=== PATIENT | female | born 1970 | race Caucasian/White ===

== ENCOUNTER 2016-12-02 10:52 | Emergency (ER) | payer OTHER ==
[~2016-12-02] VITALS: Ht 167.6 cm; Wt 89.8 kg
[~2016-12-02 10:52] MED LIST: ALPRAZOLAM0.5 MG PO; EFFEXOR75 MG PO; FIORICET 325 MG1 TAB PO; FOLIC ACID 1 MG PO; GABAPENTIN TAB600 MG PO; LAMICTAL200 MG PO
[2016-12-02 12:19] LABS: ABSOLUTE BASOPHIL COUNT 0.1 /CUMM (0.0-0.2); ABSOLUTE EOSINOPHIL COUNT 0.1 /CUMM (0.0-0.7); ABSOLUTE GRANULOCYTE CT 5.9 /CUMM (1.4-6.5); ABSOLUTE LYMPH COUNT 2.3 /CUMM (1.2-3.4); ABSOLUTE MONOCYTE COUNT 0.5 /CUMM (0.10-0.60); BASOPHIL % 1.4 % (0.0-2.0); EOSINOPHIL % 1.3 % (0-5); GRANULOCYTE % 66.2 % (42.2-75.2); HEMATOCRIT 42.1 % (37-47); MEAN CORPUSCULAR HGB CONC 34.3 G/DL (33.0-37.0); MEAN CORPUSCULAR VOLUME 90.3 FL (81.0-99.0); PLATELET COUNT 256 /CUMM (130-400); RBC DISTRIBUTION WIDTH 13.5 % (11.5-14.5); RED BLOOD CELL CT 4.66 /CUMM (4.20-5.40); WHITE BLOOD CELL COUNT 8.9 /CUMM (4.8-10.8)
--- NOTE | 2016-12-02 12:36 | ED AMS/SEIZURE/WEAK/DIZZY ---
History of Present Illness General Chief Complaint: Dizziness Stated Complaint: DIZZYNESS SENT BY DR LI FOR EVAL AND CT Source: patient, family, old records Exam Limitations: no limitations Vital Signs & Intake/Output Vital Signs & Intake/Output Vital Signs Date Time Temp Pulse Resp B/P Pulse O2 O2 Flow FiO2 Ox Delivery Rate 12/02 1520 97.7 88 16 128/69 98 Room Air 12/02 1331 97.4 81 18 122/68 99 Room Air 12/02 1210 98 Room Air 12/02 1059 97.9 89 20 145/90 98 Room Air Allergies Coded Allergies: Iodinated Contrast Media - Oral and (SNEEZING, HIVES 12/02/16) Penicillins (DYSPNEA, RESPIRATORY DISTRESS, PER PT NO THROAT/LIP SWELLING ) fentanyl (PROFUSE VOMITING 12/02/16) prednisone (PSYCHOTIC EPISODE 12/02/16) Reconcile Medications Alprazolam 0.5 MG TABLET 1 TAB PO PRN ANXIETY (Reported) Calcium (Elemental-Fr Calcarb) (Calcium) (Unknown Strength) TABLET (Unknown Dose) PO DAILY SUPPLEMENT (Reported) Cholecalciferol (Vitamin D3) (Vitamin D) (Unknown Strength) TABLET (Unknown Dose) PO DAILY SUPPLEMENT (Reported) Ferrous Sulfate (IRON) (Unknown Strength) TABLET (Unknown Dose) PO DAILY SUPPLEMENT (Reported) Folic Acid 1 MG TABLET 1 TAB PO DAILY SUPPLEMENT (Reported) Gabapentin 600 MG TABLET 1 TAB PO TID ARTHRITIS - CROHNS RELATED (Reported) Levonorgestrel (Mirena) 20 MCG/24 HOUR (5 YEARS) IUD CONTROL (Reported) Magnesium Oxide (Magnesium) (Unknown Strength) CAPSULE (Unknown Dose) PO DAILY SUPPLEMENT (Reported) Methotrexate 2.5 MG TABLET 8 TAB PO QMON ARTHRITIS (Reported) Venlafaxine HCl (Venlafaxine HCl ER) 75 MG CAP.ER.24H 1 CAP PO DAILY MENTAL HEALTH (Reported) Triage Note: PT SIB DR LI FOR DIZZINESS. PER DAUGHTER PT HAS BEEN SLURRING HER SPEECH, DIFFICULTY SPEAKING, LEFT SIDE WEAKNESS PER DAUGHTER. NO FACIAL DROOP NOTED. HAND GRASP IS EQUAL AND STRONG. PT NEEDED ASSIST OF 2 TO AMBULATE TO TRIAGE. PER DAUGHTER THIS IS ALL NEW OF 0600 Triage Nurses Notes Reviewed? yes Onset: Morning Duration: hour(s):, better, changing over time Timing: recent history Injury Environment: home Severity: severe Modifying Factors: Improves With: rest. Worsens With: movement. LMP (ages 10-50): unknown : No Patient currently breastfeeds: No HPI: 5 hours prior to admission patient awoke feeling weak and collapsed in the kitchen. She had a banana drank coffee went back to bed. She subsequently texted her daughter that she felt weak and needed to see her doctor. Her daughter arrived and she was continuing to be weak collapsing striking the back of her head on the wall with slurred speech and left leg weakness. She denies fever chills nausea vomiting diarrhea abdominal pain chest pain shortness of breath headache dysuria rash bleeding. Past History Travel History Traveled to [place] past 21 day No Medical History Any Pertinent Medical History? see below for history Neurological: seizure EENT: NONE Cardiovascular: NONE Respiratory: NONE Gastrointestinal: Crohn's disease Hepatic: NONE Renal: NONE Musculoskeletal: fibromyalgia Psychiatric: anxiety Endocrine: NONE Blood Disorders: NONE Cancer(s): NONE OPAL POLISHER/Reproductive: NONE Surgical History Surgical History: non-contributory Psychosocial History What is your primary language Samoan Tobacco Use: Never used ETOH Use: denies use Illicit Drug Use: denies illicit drug use Family History Hx Contributory? No Review of Systems Review of Systems Constitutional: Reports: see HPI, weakness. EENTM: Reports: no symptoms. Respiratory: Reports: no symptoms. Cardiovascular: Reports: no symptoms. GI: Reports: no symptoms. Genitourinary: Reports: no symptoms. Musculoskeletal: Reports: no symptoms. Skin: Reports: no symptoms. Neurological/Psychological: Reports: see HPI, confusion, weakness. Hematologic/Endocrine: Reports: no symptoms. Immunologic/Allergic: Reports: no symptoms. All Other Systems: Reviewed and Negative Physical Exam Physical Exam General Appearance: well developed/nourished, alert, awake, anxious, moderate distress, obese Head: atraumatic, normal appearance Eyes: Bilateral: normal appearance, PERRL, EOMI. Ears, Nose, Throat: normal pharynx, normal ENT inspection Neck: normal inspection, supple, full range of motion, no midline tenderness Respiratory: normal breath sounds, chest non-tender, no respiratory distress, quiet respiration, lungs clear Cardiovascular: regular rate/rhythm, normal peripheral pulses, norml femoral pulses equa Peripheral Pulses: 4+ carotid (R), 4+ carotid (L) Gastrointestinal: normal bowel sounds, soft, non-tender, no organomegaly Back: normal inspection, normal range of motion Extremities: normal range of motion, no ligament instability Neurologic/Psych: no motor/sensory deficits, awake, alert, oriented x 3, normal gait, normal mood/affect, 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 Skin: intact, normal color, warm/dry Lymphatic: no anterior cervical juan carlos Core Measures ACS in differential dx? No CVA/TIA Diagnosis: No Severe Sepsis Present: No Septic Shock Present: No Progress Differential Diagnosis: CVA/stroke, electrolyte imbalance, hypoxia, seizure disorder, subarachnoid Hem. Plan of Care: Orders Procedure Date/time Status TSH REFLEX 12/02 113 Complete TROPONIN LEVEL 12/02 113 Complete PROLACTIN 12/02 113 Complete MAGNESIUM 12/02 113 Complete COMPREHENSIVE METABOLIC PANEL 12/02 113 Complete CBC WITHOUT DIFFERENTIAL 12/02 1136 Complete EKG 12/02 113 Active Laboratory Tests 12/02/16 1201: Anion Gap 8, Estimated GFR > 60, BUN/Creatinine Ratio 8.3, Glucose 86, Calcium 9.3, Magnesium 2.0, Total Bilirubin 0.4, AST 17, ALT 36, Alkaline Phosphatase 75 , Troponin I < 0.01, Total Protein 6.6, Albumin 4.0, Globulin 2.6, Albumin/ Globulin Ratio 1.5, TSH &T3 &Free T4 Intrp 0.537, Prolactin 13.3, CBC w Diff NO MAN DIFF REQ, RBC 4.66, MCV 90.3, MCH 31.0, RDW 13.5, MPV 9.0, Gran % 66.2, Lymphocytes % 25.9, Monocytes % 5.2, Eosinophils % 1.3, Basophils % 1.4, Absolute Granulocytes 5.9, Absolute Lymphocytes 2.3, Absolute Monocytes 0.5, Absolute Eosinophils 0.1, Absolute Basophils 0.1, PUBS MCHC 34.3 Diagnostic Imaging: Viewed by Me: CT Scan. Discussed w/RAD: CT Scan. Radiology Impression: no acute abnormality Initial ED EKG: normal axis, normal intervals, normal p-waves, normal QRS complex, normal sinus rhythm, no ST T wave changes Prior EKG: unchanged Rhythm Strip: normal sinus rhythm Departure Departure Time of Disposition: 1543 Disposition: HOME OR SELF CARE Condition: Stable Clinical Impression Primary Impression: Post-ictal state Referrals: JEN YAN,WILLI Wallace (PCP/Family) Departure Forms: Customer Survey General Discharge Information
[2016-12-02] MEDS ORDERED: GABAPENTIN600 M1 PO (12:38)
[2016-12-02] MEDS ORDERED: METHOTREXATE2.5 M2 PO (12:38)
[2016-12-02] MEDS ORDERED: VENLAFAXINE HCL75 M1 PO (12:38)
[2016-12-02] MEDS ORDERED: VITAMIN D2000 UNI1 PO (12:39)
[2016-12-02] MEDS ORDERED: ALPRAZOLAM0.5 M4 PO (12:39)
[2016-12-02] MEDS ORDERED: FOLIC ACID1 M1 PO (12:39)
[2016-12-02] MEDS ORDERED: IRON325 M3 PO (12:39)
[2016-12-02] MEDS ORDERED: MIRENA1 EACH (12:40)
[2016-12-02] MEDS ORDERED: MAGNESIUM400 M1 PO (12:40)
[2016-12-02] MEDS ORDERED: CALCIUM600 M3 PO (12:40)
--- NOTE | 2016-12-02 12:56 | CT SCAN REPORT ---
EXAMINATION: CT HEAD WITHOUT CONTRAST CLINICAL INFORMATION: Slurred speech, left-sided weakness and fall with head strike. COMPARISON: Head CT from 10/25/2014 TECHNIQUE: Contiguous axial imaging was performed from the skull base to vertex without intravenous administration of contrast. DLP: 600.71 mGy-cm FINDINGS: No evidence of cerebral edema, intracranial hemorrhage, extra-axial fluid collection, focal mass effect or midline shift. The ventricles have normal size and configuration. The wills-white matter differentiation is maintained. No signs of an acute major vascular territory infarction. No acute findings within the posterior fossa. The calvarium is intact and the visualized paranasal sinuses, mastoid air cells and middle ear cavities are clear. The orbits, globes and temporomandibular joints are unremarkable. IMPRESSION: No acute intracranial pathology.
[2016-12-02 15:20] VITALS: BP 128/69
== END 2016-12-02 16:02 ==
LOC: ERH 10:52
PROVIDERS: Emergency Medicine
DX: R53.1 Weakness (principal)
CPT/HCPCS: 93005; 93010

== ENCOUNTER → 2017-02-20 | Day surgery (SDC) | payer OTHER ==
[~2017-02-20] VITALS: Ht 165.1 cm; Wt 88.5 kg
[~2017-02-20] MED LIST changes: +ALPRAZOLAM0.5 M4 PO; +CALCIUM600 M3 PO; +EFFEXOR XR75 M1 PO; +FOLIC ACID1 M1 PO; +GABAPENTIN600 M1 PO; +IRON325 M3 PO; +MAGNESIUM400 M1 PO; +METHOTREXATE2.5 M2 PO; +MIRENA1 EACH; +VENLAFAXINE HCL75 M1 PO; +VITAMIN D2000 UNI1 PO
--- NOTE | 2017-02-20 12:59 | RADIOLOGY REPORT ---
EXAMINATION: XR ABDOMEN CLINICAL INDICATION: Right ureteroscopy performed in operating room. COMPARISON: CT images of abdomen and pelvis, 02/13/2017 TECHNIQUE: Fluoroscopic imaging assistance was provided to Dr. Sorensen within the operating room. Fluoroscopic imaging of the right abdomen was performed. Number of saved fluoroscopic images: 21. Fluoroscopy time: 33.2 seconds. Dose: 498.09 mrad. FINDINGS: Fluoroscopic imaging assistance was provided to the operating room during right ureteroscopy. The retrograde pyelogram shows no evidence of pelvocaliectasis. The final fluoroscopic image was acquired after right ureteral stent placement. Multiple metallic tacks from abdominal wall mesh are noted. IMPRESSION: Fluoroscopic imaging assistance was provided to the operating room.
--- NOTE | 2017-02-20 13:50 | Operative Report ---
Operative/Inv Procedure Report Surgery Date: 02/20/17 Name of Procedure: right ureteroscopy with laserlithotripsy, retrograde pyelogram and stent placement Pre-Operative Diagnosis: 6mm lower pole stone Post-Operative Diagnosis: same; stone however within the papillae and unable to be lasered or extracted. images taken. Estimated Blood Loss: less than 50ml Surgeon/Candy Feeder: BROOKE SCHWARTZ MD Anesthesia: laryngeal mask airway Drains: 6x26cm stent Specimens: none Complications: unable to retrieve stone within papillae Condition: stable Operative Indication: renal colic Operative/Procedure Note Note: This an operative dictation on patient Magdalena Olson. She was consented for a right ureteroscopy with laser lithotripsy and stent placement. The risks benefits and alternatives of the surgery were given. All questions were answered. Patient was taken to the operating room placed on the operating table in the supine position. Once timeout was performed general anesthesia with LMA was given and IV antibiotics were infused. Patient was placed in the dorsolithotomy position. She was prepped and draped in standard sterile fashion. Cystoscopy was performed first and the bladder was globally inspected. The bladder was within normal limits with normal anatomy and ureteral orifices in their normal anatomic location. The right ureteral orifice was cannulated with a sensor guidewire. This was followed by a second Super Stiff wire using the dual-lumen catheter. The wires were seen to be in good position. 35 cm ureteral access sheath was then placed without difficulty. The inner sheath and the wire was removed. Flexible ureteroscope was placed up into the renal pelvis. The renal calyces were examined sequentially from the upper mid and lower pole. However no stones were visualized. Retropyelogram was done to ensure that all the anatomy was examined. The anatomy was examined completely and then finally a small crystalline the age of the stone was seen in the lower pole calyx that was very difficult to reach. However the stone was seen to be behind the papilla and unable to be reached. There was a small opening that was used to place the laser fiber through which is almost just the caliber of the laser fiber. This was the lasered however only a small edge of the stone was able to be fragmented. Attempts at fragmenting the stone through the papilla caused bleeding and this was aborted. The ureteroscope was removed examining the ureter on the way out. No stones were seen. The remaining wire was then used to place a 6 by the 26 cm stent with cystoscopy. Seen to be in good position. The patient tolerated the procedure well. She did have bloody urine output from the right ureteral orifice at the end of the procedure. Findings: lower pole stone within the papillae Discharge Disposition: PACU
== END ==
LOC: STS 01:28
DX: N20.0 Calculus of kidney (principal); Z87.442 Personal history of urinary calculi; K21.9 Gastro-esophageal reflux disease without esophagitis; K90.0 Celiac disease
CPT/HCPCS: 74000; 81025; C2617; J0131; J0744; J2250; J7060